=== PATIENT | female | born 1960 | race Caucasian/White ===

== ENCOUNTER 2017-01-11 11:35 | Emergency (ER) | payer MEDICAID ==
[2017-01-11] MEDS ORDERED: ONDANSETRON HCL IV 4 MG/2 ML VIAL IVP ONE (12:02)
[2017-01-11] MEDS ORDERED: HYDROMORPHONE HCL 1MG/ML **SYRINGE IVP ONE ×2 (12:02→14:18)
[2017-01-11 12:21] LABS: BASO % 0.2 % (0-6); EOS % 1.1 % (0-6); HEMATOCRIT 47.7 % (35.0-47.0); HEMOGLOBIN 16.7 gm/dl (11.6-16.0); LYMPH % 14.5 % (16-45); MEAN CELL VOLUME 91.9 fl (81-97); MEAN CORPUSCULAR HEMOGLOBIN 32.1 pg (27-33); MEAN PLATELET VOLUME 9.7 fl (7.4-10.4); MONO % 6.2 % (0-9); PLATELET COUNT 371 K/uL (130-400); RED BLOOD COUNT 5.19 M/uL (3.80-5.40); RED CELL DISTRIBUTION WIDTH 14.4 % (11.5-14.5); WHITE BLOOD COUNT W/O DIFF 13.1 K/uL (4.2-12.2)
--- NOTE | 2017-01-11 12:21 | Emergency Department Record ---
History of Present Illness - General Chief complaint: Dental Stated complaint: LT SIDE FACE SWOLLEN Time Seen by Provider: 01/11/17 11:50 Source: Patient Mode of Arrival: Ambulatory Limitations: No limitations - History of Present Illness Initial comments: pt comes in w swelling and tenderness on the l side of her face. she states she had this happen before and was told she had a blocked saliva gland at an urgent care. she has never had a ct of it. she saw dr chao once for this. he told her to suckk lemon drops and if it ever had swelling again to immediately get to an emergency dept for antibiotics. she has had no foul taste in her mouth. she has not been sucking on lemon drops. MD complaint: Other Onset/Timin -: Hour(s) Location: Other Severity: Moderate Severity scale (1-10): 8 Quality: Other Consistency: Constant, Getting worse Improves with: None Worsens with: None Associated Symptoms: Other - Related Data Previous Rx's Medication Instructions Recorded Amoxicillin/Potassium Clav 1 tab PO BID #20 tab 01/11/17 [Augmentin 875-125 Tablet] Hydrocodone/Acetaminophen [Ripley 1 each PO QID #7 tablet 01/11/17 5-325 Tablet] Allergies Allergy/AdvReac Type Severity Reaction Status Date / Time adhesive tape Allergy Intermediate RASH Verified 01/11/17 11:38 bacitracin Allergy Intermediate RASH Verified 01/11/17 11:38 [From Neosporin ([id number])] bacitracin zinc Allergy Intermediate RASH Verified 01/11/17 11:38 [From Neosporin ([id number])] cortisone Allergy Intermediate RASH Verified 01/11/17 11:38 latex Allergy Intermediate RASH Verified 01/11/17 11:38 neomycin sulfate Allergy Intermediate RASH Verified 01/11/17 11:38 [From Neosporin ([id number])] polymyxin B Allergy Intermediate RASH Verified 01/11/17 11:38 [From Neosporin ([id number])] povidone-iodine Allergy Intermediate RASH Verified 01/11/17 11:38 [From Betadine] soap [From Betadine] Allergy Intermediate RASH Verified 01/11/17 11:38 steristrips Allergy Intermediate RASH Uncoded 10/18/15 08:01 tegaderm dressing Allergy Intermediate RASH Uncoded 10/18/15 08:01 Travel Screening - Travel/Exposure Within Last 30 Days Have you traveled within the last 30 days?: No - Travel/Exposure Within Last Year Have you traveled outside the [place] in the last year?: No - Additonal Travel Details Have you been exposed to anyone with a communicable illness?: No - Travel Symptoms Symptom Screening: None Review of Systems Reviewed: No additional complaints except as noted below Constitutional: Reports: As per HPI. Denies: Chills, Fever, Malaise, Night sweats, Weakness, Weight change Eyes: Reports: As per HPI. Denies: Eye discharge, Eye pain, Photophobia, Vision change ENT: Reports: As per HPI. Denies: Congestion, Dental pain, Ear pain, Epistaxis , Hearing loss, Throat pain Respiratory: Reports: As per HPI. Denies: Cough, Dyspnea, Hemoptysis, Stridor, Wheezes Cardiovascular: Reports: As per HPI. Denies: Arrhythmia, Chest pain, Dyspnea on exertion, Edema, Murmurs, Orthopnea, Palpitations, Paroxysmal nocturnal dyspnea, Rheumatic Fever, Syncope Endocrine: Reports: As per HPI. Denies: Fatigue, Heat or cold intolerance, Polydipsia, Polyuria Gastrointestinal: Reports: As per HPI. Denies: Abdominal pain, Constipation, Diarrhea, Hematemesis, Hematochezia, Melena, Nausea, Vomiting Genitourinary: Reports: As per HPI. Denies: Abnormal menses, Discharge, Dyspareunia, Dysuria, Frequency, Hematuria, Incontinence, Retention, Urgency Musculoskeletal: Reports: As per HPI. Denies: Arthralgia, Back pain, Gout, Joint swelling, Myalgia, Neck pain Skin: Reports: As per HPI. Denies: Bruising, Change in color, Change in hair/ nails, Lesions, Pruritus, Rash Neurological: Reports: As per HPI. Denies: Abnormal gait, Confusion, Headache, Numbness, Paresthesias, Seizure, Tingling, Tremors, Vertigo, Weakness Psychiatric: Reports: As per HPI. Denies: Anxiety, Auditory hallucinations, Depression, Homicidal thoughts, Suicidal thoughts, Visual hallucinations Hematological/Lymphatic: Reports: As per HPI. Denies: Anemia, Blood Clots, Easy bleeding, Easy bruising, Swollen glands Past Medical History - SOCIAL HISTORY Smoking Status: Current every day smoker Alcohol Use: None Drug Use: None - RESPIRATORY Hx Respiratory Disorders: No - CARDIOVASCULAR Hx Cardio Disorders: No - NEURO Hx Neuro Disorders: No - GI Hx GI Disorders: No - Hx Genitourinary Disorders: No - ENDOCRINE Hx Endocrine Disorders: No - MUSCULOSKELETAL Hx Musculoskeletal Disorders: Yes - PSYCH Hx Psych Problems: No - HEMATOLOGY/ONCOLOGY Hx Hematology/Oncology Disorders: Yes Hx Cancer: Yes Family Medical History Any Significant Family History?: No Physical Exam - General General Appearance: Alert, Oriented x3, Cooperative, Mild distress - Head Head exam: Normal inspection Image of Face/Head: 1 - swelling and tenderness - Eye Eye exam: Normal appearance, PERRL, EOMI Pupils: Normal accommodation - ENT ENT exam: Normal exam, Mucous membranes moist, Normal external ear exam, Normal orophraynx Ear exam: Normal external inspection. negative: External canal tenderness Nasal Exam: Normal inspection. negative: Discharge, Sinus tenderness Mouth exam: Normal external inspection, Tongue normal, Other (no foul drainage) Teeth exam: Normal inspection. negative: Dental caries Throat exam: Normal inspection. negative: Tonsillar erythema, Tonsillar exudate - Neck Neck exam: Normal inspection, Full ROM. negative: Tenderness - Respiratory Respiratory exam: Normal lung sounds bilaterally. negative: Respiratory distress - Cardiovascular Cardiovascular Exam: Regular rate, Normal rhythm, Normal heart sounds - GI/Abdominal GI/Abdominal exam: Soft, Normal bowel sounds. negative: Tenderness - Rectal Rectal exam: Deferred - exam: Deferred - Extremities Extremities exam: Normal inspection, Full ROM, Normal capillary refill. negative: Tenderness - Back Back exam: Reports: Normal inspection, Full ROM. Denies: Muscle spasm, Rash noted, Tenderness - Neurological Neurological exam: Alert, CN II-XII intact, Normal gait, Oriented X3 - Psychiatric Psychiatric exam: Normal affect, Normal mood - Skin Skin exam: Dry, Intact, Normal color, Warm Course Vital Signs 01/11/17 11:40 Temperature 99 F Pulse Rate 94 H Respiratory 18 Rate Blood Pressure 132/68 Pulse Ox 97 - Reevaluation(s) Reevaluation #1: 01/11/17 14:20 pt feels better. d/w dr chao who agrees w treatment and will see pt tomorrow Medical Decision Making - Lab Data Result diagrams: 01/11/17 12:10 01/11/17 12:10 Disposition Disposition: Discharge Clinical Impression: Parotiditis Disposition: Home, Self-Care Condition: (1) Good Instructions: Sialoadenitis (ED), Parotid Duct Obstruction (ED) Additional Instructions: follow up with dr chao tomorrow. sleep elevated. return sooner if worse. warm compresses. continue to try to milk duct Prescriptions: Amoxicillin/Potassium Clav [Augmentin 875-125 Tablet] 1 tab PO BID #20 tab Hydrocodone/Acetaminophen [Ripley 5-325 Tablet] 1 each PO QID #7 tablet Referrals: SERA CHAO [DOCTOR OF OSTEOPATH] - Forms: Patient Portal Access Quality - Quality Measures Quality Measures: N/A - Blood Pressure Screening Does Patient Have Any of the Following: No Blood Pressure Classification: Pre-Hypertensive BP Reading Systolic Measurement: 132 Diastolic Measurement: 68 Screening for High Blood Pressure: < Pre-Hypertensive BP, F/U Documented > [ [id number]] Pre-Hypertensive Follow-up Interventions: Follow-up with rescreen every year.
[2017-01-11 12:34] LABS: BLOOD UREA NITROGEN 8 mg/dL (6-20); CREATININE 0.6 mg/dL (0.5-0.9); EST GLOMERULAR FILTRATION RATE > 60 mL/min; GLUCOSE,RANDOM 154 mg/dL (74-109)
[2017-01-11] MEDS ORDERED: AMPICILLIN SODIUM/SULBACTAM NA 3 G in 0.9 % SODIUM CHLORIDE 100ML 100 ML IVPB ONE (13:21)
--- NOTE | 2017-01-13 05:45 | CT SCAN REPORT ---
DATE: 01/11/2017 at 1235. EXAM: CT OF THE NECK WITH CONTRAST. HISTORY: Awoke this morning with left-sided facial swelling and pain. History of salivary duct obstruction. TECHNIQUE: Contrast-enhanced helical CT examination of the neck is performed with images obtained from the skull base through the AP window of the mediastinum with 100 mL of Omnipaque 300 utilized. Coronal and sagittal reformatted images are generated and reviewed. COMPARISON: None. FINDINGS: The left parotid gland is enlarged with mild heterogeneous hyperenhancement relative to the right parotid gland. There is associated mild periparotid fat stranding/edema extending inferiorly to the left submandibular region. There is no convincing evidence of obstructing calculus within Stensen's duct on the left; though there is a somewhat tubular area of hypodensity in the central left parotid gland which appears to branch. This measures approximately 12 mm in length and 4.0 mm in diameter. This is likely a dilated parotid duct. Developing abscess would be difficult to exclude. The extraparotid portion of the duct (Stensen's duct) does not appear dilated. The right parotid gland and both submandibular glands are without focal abnormality. No gross cervical adenopathy is identified. There are nonenlarged jugulodigastric lymph nodes bilaterally. No mucosal pharyngeal space abnormality is seen; though evaluation of the larynx is limited as the glottis is closed. The thyroid gland is normal in appearance. There is mild atherosclerosis of the left carotid bifurcation without clinically significant stenosis of the internal carotid artery. Though there may be focal moderate to high-grade stenosis of the proximal left external carotid artery. There are mild degenerative changes of the visualized spine. There is mild mucosal thickening within the maxillary sinuses and several bilateral ethmoid air cells. The mastoid air cells as visualized are clear. Paraseptal emphysema is noted in the upper lungs as well as biapical lung scarring. A pleural-based calcified granuloma is demonstrated within the posterior right upper lobe measuring 5.0 mm. IMPRESSION: 1. HETEROGENEOUS ENLARGEMENT OF THE LEFT PAROTID GLAND WITH PERIPAROTID EDEMA EXTENDING INFERIORLY TO THE LEFT SUBMANDIBULAR LEVEL CONSISTENT WITH PAROTITIS. THERE IS DILATATION OF THE INTRAPAROTID DUCT. DEVELOPING ABSCESS WOULD BE DIFFICULT TO EXCLUDE. THE EXTRAPAROTID PORTION OF THE DUCT, HOWEVER, APPEARS NORMAL IN CALIBER, AND THERE IS NO OBSTRUCTING CALCULUS SEEN. 2. POSSIBLE HIGH-GRADE STENOSIS OF THE PROXIMAL LEFT EXTERNAL CAROTID ARTERY SECONDARY TO CALCIFIED PLAQUE; THOUGH THE INTERNAL CAROTID ARTERY IS WIDELY PATENT. JOB NUMBER: [id number] MTDD
== END 2017-01-11 14:39 | disposition home or self-care (01) ==
LOC: ER 11:35
DX: K11.21 Acute sialoadenitis (principal); Z87.891 Personal history of nicotine dependence
CPT/HCPCS: 99284 ×2; 96365; 96375; 85025; 80048; 70491; Q9967; J0295; J2405; J1170